=== PATIENT | female | born 1965 | race Two or more races ===

== ENCOUNTER 2020-02-06 05:51 | Day surgery (SDC) | payer OTHER ==
--- NOTE | 2020-02-05 12:40 | NUR ---
[employer] translation services used to obtained medical history in Slovak with neurology technician Kennedy ID# [id number].
[2020-02-06] VITALS (12 sets, daily range): BP systolic 104–132; BP diastolic 63–82
[~2020-02-06] VITALS: Ht 157.5 cm; Wt 79.4 kg
[2020-02-06] MEDS ORDERED: ceFAZolin 1gm IVPB IVPB ONE ×2 (06:00)
[2020-02-06] MEDS ORDERED: celeBREX 200mg Cap **SURGERY PATIENTS ONLY ORAL ONE (06:00)
[2020-02-06] MEDS ORDERED: oxyCONTIN 20mg tab ORAL ONE (06:00)
[2020-02-06] MEDS ORDERED: LR 1000ml ONE (07:30)
[2020-02-06] MEDS ORDERED: NS Irrig 1000ml ONE (07:30)
[2020-02-06] MEDS ORDERED: Sterile Water Irrig 1000ml IRRIG ONE (07:30)
--- NOTE | 2020-02-06 07:32 | Anethesia Preoperative Eval ---
Anesthesia Pre-op PMH/ROS General Date of Evaluation: Feb 06, 2020 Time of Evaluation: 07:34 Anesthesiologist: Nile ASA Score: ASA 2 Mallampati Score Class I : Soft palate, uvula, fauces, pillars visible Class II: Soft palate, uvula, fauces visible Class III: Soft palate, base of uvula visible Class IV: Only hard plate visible Mallampati Classification: Class II Surgeon: Tano Diagnosis: L Shoulder Pain Surgical Procedure: L Shoulder Arthroscopy Anesthesia History: none Family History: no anesthesia problems Allergies: Coded Allergies: No Known Allergies (Unverified , 02/06/20) Medications: see eMAR Patient NPO?: Yes Past Medical History Cardiovascular: Reports: HTN Neurologic/Psychiatric: Reports: depression/anxiety Other: obesity - BMI 33 PSxH Narrative: Vein Stripping Anesthesia Pre-op Phys. Exam Physician Exam Last Vital Signs Date Time Temp Pulse Resp B/P (MAP) Pulse Ox O2 Delivery O2 Flow Rate FiO2 02/06/20 06:23 97.7 75 16 132/76 99 Room Air Constitutional: NAD Neurologic: CN 2-12 intact Cardiovascular: RRR Respiratory: CTA Gastrointestinal: S/NT/ND Airway Exam Mallampati Score: Class II MO: full ROM: limited Teeth: missing, intact Anesthesia Pre-op A/P Risk Assessment & Plan Assessment: ASA 2 Plan: GA, SED Status Change Before Surgery: No Pre-Antibiotics Dru Gram Ancef IV Given Within 1 Hr of Incision: Yes Time Given: 08:08 Mk Dowd MD Feb 06, 2020 07:32
--- NOTE | 2020-02-06 07:32 | Immediate Post-Op Evaluation ---
Immediate Post-Op Evalulation Immediate Post-Op Evalulation Procedure: L Shoulder Arthroscopy Date of Evaluation: Feb 06, 2020 Time of Evaluation: 09:44 IV Fluids: 1000 LR Blood Products: 0 Estimated Blood Loss: 25 Urinary Output: 0 Blood Pressure Systolic: 129 Blood Pressure Diastolic: 78 Pulse Rate: 75 Respiratory Rate: 16 O2 Sat by Pulse Oximetry: 100 Temperature (Fahrenheit): 97.2 Pain Score (1-10): 1 Nausea: No Vomiting: No Complications 0 Patient Status: awake, reacts, patent, none Hydration Status: adequate Dru Gram Ancef IV Given Within 1 Hr of Incision: Yes Time Given: 08:08 Mk Dowd MD Feb 06, 2020 07:32
--- NOTE | 2020-02-06 07:33 | 48 Hour Post Anesthesia Eval ---
Post Anesthesia Evaluation Procedure: L Shoulder Arthroscopy Date of Evaluation: Feb 06, 2020 Time of Evaluation: 11:54 Blood Pressure Systolic: 134 0: 67 Pulse Rate: 73 Respiratory Rate: 18 Temperature (Fahrenheit): 98 O2 Sat by Pulse Oximetry: 99 Airway: patent Nausea: No Vomiting: No Pain Intensity: 1 Hydration Status: adequate Cardiopulmonary Status: Stable Mental Status/LOC: patient returned to baseline Follow-up Care/Observations: 0 Post-Anesthesia Complications: 0 Follow-up care needed: ready to discharge Mk Dowd MD Feb 06, 2020 07:33
--- NOTE | 2020-02-06 07:34 | Pre-Procedure Note/Attestation ---
Pre-Procedure Note/Attestation Complete Prior to Procedure Planned Procedure: left Procedure Narrative: shoulder diagnostic arthroscopy, sad, rc repair Indications for Procedure Pre-Operative Diagnosis: left shoulder rc tear, impingement Attestation I attest that I discussed the nature of the procedure; its benefits; risks and complications; and alternatives (and the risks and benefits of such alternatives), prior to the procedure, with the patient (or the patient's legal patient access representative). I attest that, if there was a reasonable possibility of needing a blood transfusion, the patient (or the patient's legal patient access representative) was given the [facility] Services standardized written summary, pursuant to the [place] Blood Safety Act ([place] Health and Safety Code # 1645, as amended). I attest that I re-evaluated the patient just prior to the surgery and that there has been no change in the patient's H&P, except as documented below: Jose Freedman MD Feb 06, 2020 07:34
[2020-02-06] MEDS ORDERED: Lidocaine 1% MPF 10mg/ml 5ml ONE (07:35)
[2020-02-06] MEDS ORDERED: Sodium Chloride 10ml vial INJ ONE (07:35)
--- NOTE | 2020-02-06 07:35 | Operative Note - PDOC ---
Operative Note Operative Note Pre-op Diagnosis: left shoulder rc tear, impingement Procedure: see op report Post-op Diagnosis: same as pre-op plus Operative Findings: consistent w/pre-op dx studies Anesthesia: regional Specimen: none Complications: none Condition: stable Estimated Blood Loss: none Implant(s) used?: No Jose Freedman MD Feb 06, 2020 07:35
[2020-02-06] MEDS ORDERED: Ropivacaine 5mg/ml Vial 20ml INJ ONE (07:41)
[2020-02-06] MEDS ORDERED: EPINEPHrine 1mg/1ml Amp ONE ×2 (07:41→07:45)
[2020-02-06] MEDS ORDERED: HYDROcodone/Acetamin 5/325 tab ORAL PRN ×2 (07:45→09:45)
[2020-02-06] MEDS ORDERED: Tylenol #3 tab (300mg/30mg) ORAL PRN (07:45)
[2020-02-06] MEDS ORDERED: D5 1/2NS 1,000 ML IV SCH (07:45)
[2020-02-06] MEDS ORDERED: Bupivacaine 0.25% Inj 30ml INJ ONE (07:45)
[2020-02-06] MEDS ORDERED: Ketorolac 30mg Inj ONE (07:45)
[2020-02-06] MEDS ORDERED: HYDROmorphone 1mg/ml Carpuject SUBQ PRN (07:45)
[2020-02-06] MEDS ORDERED: Kenalog-40 1ml Vial ONE (07:45)
[2020-02-06] MEDS ORDERED: LR 1000ml 1,000 ML IVLG SCH (09:45)
[2020-02-06] MEDS ORDERED: fentaNYL 100 mcg/2 mL IV PRN (09:45)
[2020-02-06] MEDS ORDERED: LORazepam Inj 2mg/ml 1ml IV PRN (09:45)
[2020-02-06] MEDS ORDERED: Meperidine 25mg/0.5ml Inj (FOR RIGORS ONLY) IV PRN (09:45)
[2020-02-06] MEDS ORDERED: Midazolam 2mg/2ml Inj IVP PRN (09:45)
[2020-02-06] MEDS ORDERED: Ketorolac 30mg Inj IV PRN ×2 (09:45)
[2020-02-06] MEDS ORDERED: Atropine Sulfate 0.4mg/ml inj IVP PRN (09:45)
[2020-02-06] MEDS ORDERED: Labetalol 5mg/ml 20ml vial IV PRN (09:45)
[2020-02-06] MEDS ORDERED: HYDROcodone/Acetamin 7.5/325 tab ORAL PRN (09:45)
[2020-02-06] MEDS ORDERED: Metoclopramide 10mg/2ml Inj IVP PRN (09:45)
[2020-02-06] MEDS ORDERED: DiphenhydrAMINE 50mg/ml Inj IVP PRN (09:45)
[2020-02-06] MEDS ORDERED: oxyCODONE HCL/Acetaminophen 5/325mg ORAL PRN (09:45)
[2020-02-06] MEDS ORDERED: Hydromorphone 0.5mg/0.5ml inj IVP PRN (09:45)
--- NOTE | 2020-02-06 10:00 | Operative Note - Dictated ---
DATE OF OPERATION: 02/06/2020 PREOPERATIVE DIAGNOSIS: Left shoulder rotator cuff tear. POSTOPERATIVE DIAGNOSES: 1. Left shoulder full-thickness rotator cuff tear involving supraspinatus tendon. 2. Partial biceps tendon tear. 3. Subacromial bursitis. 4. Partial superior subscap tendon tear. PROCEDURES: 1. Left shoulder extensive intra-articular debridement. 2. Biceps tenodesis. 3. Arthroscopic rotator cuff repair. 4. Subacromial decompression bursectomy. SURGEON: Jose Freedman MD. ANESTHESIA: Interscalene with general. INDICATION FOR PROCEDURE: This is a pleasant 54-year-old female, who is noted to have significant injury to her left shoulder, was diagnosed with rotator cuff tear. She failed conservative treatment and elected to undergo left shoulder arthroscopy and rotator cuff repair. Risks, limitations, expectations, and complications were discussed in detail. All questions addressed. DESCRIPTION OF PROCEDURE: After informed consent was obtained, the patient was brought to the operating room. The patient was placed under general interscalene anesthesia. Left shoulder was prepped and draped in a sterile manner. Time-out was performed, Ancef was administered. Inferolateral stab incision was then made. Camera was placed in the glenohumeral joint. There was fraying along the superior border of the subscap. Anterior labrum was intact along with the superior labrum. There was fraying of the biceps tendon. There was complete detachment of supraspinatus footprint extending slightly to the infraspinatus. At this point, the camera was placed through the rotator cuff tear into the shoulder joint. Debridement of the superior subscap tear was performed. Once that was done, there was noted to be subscapularis footprint was intact. Once the area of the biceps tendon tear was debrided, it measured more than 50% of the biceps tendon, therefore tenotomy was performed. Superior labrum was debrided down to stable rim of tissue. Once that was done, the tissue lateral to the articular margin was debrided. Camera was then placed in subacromial space. Complete bursectomy was performed. Undersurface acromion was identified. Acromioplasty was started from lateral to medial, completed posterior to anterior. Once this was done, four mattress sutures were then placed along the infraspinatus and supraspinatus tendon along with a lateral row anchor. The footprint was then recreated. Camera was placed back in the glenohumeral joint. Footprint was completely recreated. At this point, the instruments were removed, portal sites were closed with 3-0 Monocryl sutures. Steri-Strips and a sterile dressing were applied. ESTIMATED BLOOD LOSS: None. COMPLICATIONS: None. SPECIMENS: None. IMPLANTS: Include 4 rotator cuff anchors. Jose Freedman M.D. DR: ANNY JOB#: [id number] CC:
== END 2020-02-06 12:20 | disposition home or self-care (01) ==
LOC: SUR 05:51
DX: M75.122 Complete rotator cuff tear or rupture of left shoulder, not specified as traumatic (principal); S46.812A Strain of other muscles, fascia and tendons at shoulder and upper arm level, left arm, initial encounter; S46.212A Strain of muscle, fascia and tendon of other parts of biceps, left arm, initial encounter; M71.9 Bursopathy, unspecified; X58.XXXA Exposure to other specified factors, initial encounter; Y92.9 Unspecified place or not applicable; I10 Essential (primary) hypertension; E66.9 Obesity, unspecified; F32.9 Major depressive disorder, single episode, unspecified; F41.9 Anxiety disorder, unspecified
CPT/HCPCS: 29823; 29826; 29827; 29828; 94003; C1713; J0171; J0690; J1100; J2250; J2405; J2704; J2795; J3490; J7120; U0002; 94150